=== PATIENT | male | born 1985 | race Caucasian/White ===

== ENCOUNTER 2018-09-10 11:33 | Emergency (ER) | payer BC, OTHER ==
[2018-09-10 12:01] VITALS: BP 156/90
[2018-09-10] MEDS ORDERED: Tetracaine 0.5% OPTH.SOL 4 ML* 1 DROP BTL LEFT EYE ONE (12:02)
[2018-09-10] MEDS ORDERED: Fluorescein Sodium TOPICAL* 1 MG TEST STRIP OPHTHALMIC ONE (12:02)
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
== END 2018-09-10 12:21 | disposition home or self-care (01) ==
LOC: UCCORT 11:33
DX: S05.02XA Injury of conjunctiva and corneal abrasion without foreign body, left eye, initial encounter (principal); Y08.89XA Assault by other specified means, initial encounter; Y92.89 Other specified places as the place of occurrence of the external cause; Y99.0 Civilian activity done for income or pay; Z87.891 Personal history of nicotine dependence
CPT/HCPCS: 99202; A9270-GY; G0463

== ENCOUNTER 2018-09-11 10:22 | Emergency (ER) | payer OTHER ==
[2018-09-11 10:50] VITALS: BP 161/89
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
== END 2018-09-11 11:06 | disposition home or self-care (01) ==
LOC: UCCORT 10:22
DX: H20.9 Unspecified iridocyclitis (principal); Z87.891 Personal history of nicotine dependence
CPT/HCPCS: 99212; G0463

== ENCOUNTER 2018-09-24 08:15 | Emergency (ER) | payer BC ==
[2018-09-24 08:30] VITALS: BP 159/94
--- NOTE | 2018-09-24 08:40 | UC ---
Skin Complaint HPI - HPI Summary HPI Summary: 33-year-old male presents with rash to bilateral hands and forearms. States started approximately one week ago after using a new dish soap at home. He was seen in the [facility] ED on 09/25/2018 for a work-related injury and was noted to have the rash at that time. He was given a single dose with IV steroid at that time and states that the rash did improve. Because of the improvement he attempted to wash dishes again a couple days ago and now has developed the rash again. He did notice some "sticky" drainage this morning. Denies fever, chills , pain, pruritis, swelling of the lips tongue or throat, or difficulty breathing. - History of Current Complaint Chief Complaint: UCSkin Time Seen by Provider: 09/24/18 08:17 Stated Complaint: SKIN CONCERN Hx Obtained From: Patient Pain Intensity: 0 - Allergy/Home Medications Allergies/Adverse Reactions: Allergies Allergy/AdvReac Type Severity Reaction Status Date / Time No Known Allergies Allergy Verified 09/24/18 08:28 PMH/Surg Hx/FS Hx/Imm Hx Previously Healthy: Yes - Denies significant PMH - Surgical History Surgical History: Yes Surgery Procedure, Year, and Place: LASIK, ~2008; Cranial Disorder Surgeries prior to 1987 - Family History Known Family History: Positive: Non-Contributory - Social History Occupation: Employed Full-time Lives: With Family Alcohol Use: Occasionally Substance Use Type: None Smoking Status (MU): Former Smoker Length of Time of Smoking/Using Tobacco: <1/4 PPD x 3 Years When Did the Patient Quit Smoking/Using Tobacco: 2002 - Immunization History Most Recent Tetanus Shot: ~2007 Review of Systems All Other Systems Reviewed And Are Negative: Yes Constitutional: Negative: Fever, Chills Skin: Positive: Rash - See HPI Respiratory: Negative: Shortness Of Breath Is Patient Immunocompromised?: No Physical Exam - Summary Physical Exam Summary: GENERAL APPEARANCE: Well developed, well nourished, alert and cooperative, and appears to be in no acute distress. THROAT: Oral cavity and pharynx normal. No inflammation, swelling, exudate, or lesions. Teeth and gingiva in good general condition. Airway patent. NECK: Neck supple, non-tender without lymphadenopathy. CARDIAC: Normal S1 and S2. No S3, S4 or murmurs. Rhythm is regular. There is no peripheral edema, cyanosis or pallor. Extremities are warm and well perfused. Capillary refill is less than 2 seconds. LUNGS: Clear to auscultation and percussion without rales, rhonchi, wheezing or diminished breath sounds. MUSKULOSKELETAL: ROM intact to all extremities. No joint erythema or tenderness. Normal muscular development. Normal gait. EXTREMITIES: No edema. Peripheral pulses intact. NEUROLOGICAL: Strength and sensation symmetric and intact throughout. SKIN: Erythematous, maculopapular circumferential rash with fissures to bilateral hands and forearms extending up to the elbows. No drainage noted. Triage Information Reviewed: Yes Vital Signs: Initial Vital Signs Temp 98.1 F 09/24/18 08:25 Pulse 76 09/24/18 08:25 Resp 18 09/24/18 08:25 BP 159/94 09/24/18 08:25 Pulse Ox 99 09/24/18 08:25 Vital Signs Reviewed: Yes Course/Dx - Course Course Of Treatment: 33-year-old male presents with rash to bilateral hands and forearms. States started approximately one week ago after using a new dish soap at home. He was seen in the [facility] ED on 09/25/2018 for a work-related injury and was noted to have the rash at that time. He was given a single dose with IV steroid at that time and states that the rash did improve. Because of the improvement he attempted to wash dishes again a couple days ago and now has developed the rash again. He did notice some "sticky" drainage this morning. Denies fever, chills, pain, pruritis, swelling of the lips tongue or throat, or difficulty breathing. Afebrile. VSS. Exam revealed rash to bilateral hands and forearms consistent with a contact dermatitis especially with the correlation of onset of rash with contact with a new dish detergent and the improvement with previously received steroid. Will treat with course of oral prednisone x 5 days and provide him with a topical steroid to use once oral treatment is completed. He was given number for [facility] physician referral service to asssit him with establishing a PCP for follow up. Warning symptoms reviewed. Verbalizes understanding and agrees with POC. - Differential Diagnoses - Skin Complaint Differential Diagnoses: Allergic Reaction, Contact Dermatitis, Eczema, Local Allergic Reaction - Diagnoses Provider Diagnosis: Contact dermatitis, Elevated blood pressure reading Discharge - Sign-Out/Discharge Documenting (check all that apply): Patient Departure All imaging exams completed and their final reports reviewed: No Studies - Discharge Plan Condition: Stable Disposition: HOME Prescriptions: Clobetasol Propionate/Emoll [Clobetasol Emollient 0.05% Crm] 30 gm TP BID #1 tube predniSONE TAB* [Deltasone TAB*] 50 mg PO DAILY 5 Days #5 tab Patient Education Materials: Contact Dermatitis (ED) Referrals: No Primary Care Phys,NOPCP [Primary Care Provider] - [facility] PHYSICIAN REFERRAL [Outside] Additional Instructions: Your symptoms are consistent with a contact dermatitis likely from the dish soap you were using. We will treat you with a course of oral steroids and provide you with a topical steroid you can use once you have finished taking the oral steroids. Start prednisone 50 mg 1 tab daily for 5 days. Once you have completed the prednisone start applying clobetasol cream to the affected area(s) twice a day. Do not use for more than 2 weeks. I have given you the number for the [facility]'s Physician Referral Service to assist you with establishing with a primary care provider for follow up of symptoms. Your blood pressure was also noted to be elevated in the clinic today. This should be rechecked by a primary care provider within 4 weeks. Seek immediate medical attention in the emergency room if you develop fever greater than 100.5 F, have swelling of the lips, tongue, or throat, difficulty breathing or any worsening of symptoms. - Billing Disposition and Condition Condition: STABLE Disposition: Home
== END 2018-09-24 08:54 | disposition home or self-care (01) ==
LOC: UCCORT 08:15
DX: L25.9 Unspecified contact dermatitis, unspecified cause (principal); R03.0 Elevated blood-pressure reading, without diagnosis of hypertension; Z87.891 Personal history of nicotine dependence
CPT/HCPCS: 99212; G0463

== ENCOUNTER 2018-10-03 09:37 | Emergency (ER) | payer BC ==
[2018-10-03 10:35] VITALS: BP 139/91
[2018-10-03] MEDS ORDERED: predniSONE TAB* 20 MG PO ONE (11:15)
[2018-10-03] MEDS ORDERED: Triamcinolone Acetonide* 40 MG/ML 1 ML VIAL IM ONE (11:15)
--- NOTE | 2018-10-03 11:22 | UC ---
Skin Complaint HPI - HPI Summary HPI Summary: The patient is a 33-year-old with bilateral hand and forearm rash times weeks. He had marked relief while he was on oral prednisone. He states that he tends to wash his hands too frequently. Symptoms worsen when he wash the dishes. - History of Current Complaint Chief Complaint: UCSkin Time Seen by Provider: 10/03/18 11:08 Stated Complaint: RECHECK - INFECTION IN HANDS Hx Obtained From: Patient Onset/Duration: Gradual Onset, Lasting Weeks Timing: Constant Onset Severity: Mild Current Severity: Moderate Pain Intensity: 0 Pain Scale Used: 0-10 Numeric Location: Discrete Character: Swelling, Pruritus, Redness Aggravating Factor(s): Wet Conditions Alleviating Factor(s): Other - steroids Associated Signs & Symptoms: Positive: Rash - Allergy/Home Medications Allergies/Adverse Reactions: Allergies Allergy/AdvReac Type Severity Reaction Status Date / Time No Known Allergies Allergy Verified 09/24/18 08:28 PMH/Surg Hx/FS Hx/Imm Hx Previously Healthy: Yes - Surgical History Surgical History: Yes Surgery Procedure, Year, and Place: LASIK, ~2008; Cranial Disorder Surgeries prior to 1987 - Family History Known Family History: Positive: Hypertension, Non-Contributory Negative: Diabetes - Social History Alcohol Use: Occasionally Substance Use Type: None Smoking Status (MU): Former Smoker Length of Time of Smoking/Using Tobacco: <1/4 PPD x 3 Years When Did the Patient Quit Smoking/Using Tobacco: 2002 - Immunization History Most Recent Tetanus Shot: ~2007 Review of Systems All Other Systems Reviewed And Are Negative: Yes Skin: Positive: Rash Physical Exam Triage Information Reviewed: Yes Appearance: Well-Appearing, No Pain Distress, Well-Nourished Vital Signs: Initial Vital Signs Temp 98.4 F 10/03/18 10:30 Pulse 77 10/03/18 10:30 Resp 18 10/03/18 10:30 BP 139/91 10/03/18 10:30 Pulse Ox 99 10/03/18 10:30 Vital Signs Reviewed: Yes Eyes: Positive: Conjunctiva Clear ENT: Positive: Hearing grossly normal, Other - dysmorhic facies. Negative: Nasal congestion, Nasal drainage, Tonsillar swelling, Tonsillar exudate, Muffled voice Neck: Positive: Supple, Nontender, No Lymphadenopathy Respiratory: Positive: Lungs clear, Normal breath sounds, No respiratory distress Cardiovascular: Positive: RRR, No Murmur Musculoskeletal: Positive: ROM Intact, No Edema Neurological: Positive: Alert Psychological Exam: Normal Skin: Positive: Other - bilateral hand redness/fissures/edema/dry scale Course/Dx - Diagnoses Provider Diagnosis: Hand dermatitis Discharge - Sign-Out/Discharge Documenting (check all that apply): Patient Departure All imaging exams completed and their final reports reviewed: No Studies - Discharge Plan Condition: Stable Disposition: HOME Patient Education Materials: Dermatitis (ED) Referrals: No Primary Care Phys,NOPCP [Primary Care Provider] - Additional Instructions: use your steroid cream once daily put on hands at bedtime apply medication gloves or thin cotton gloves do this for about 2-3 weeks during the day use aquaphor healing ointment (OTC) recheck in 2-3 weeks if not markedly improved - Billing Disposition and Condition Condition: STABLE Disposition: Home
== END 2018-10-03 11:52 | disposition home or self-care (01) ==
LOC: UCCORT 09:37
DX: Z51.89 Encounter for other specified aftercare (principal); L30.9 Dermatitis, unspecified; Z87.891 Personal history of nicotine dependence
CPT/HCPCS: 96372; 99211; G0463; J3301; J7512

== ENCOUNTER 2018-10-12 15:35 | Emergency (ER) | payer BC ==
[2018-10-12 16:47] VITALS: BP 149/88
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
== END 2018-10-12 18:46 | disposition home or self-care (01) ==
LOC: UCCORT 15:35
DX: S06.0X9D Concussion with loss of consciousness of unspecified duration, subsequent encounter (principal); W22.8XXD Striking against or struck by other objects, subsequent encounter; Z51.89 Encounter for other specified aftercare; Z87.891 Personal history of nicotine dependence
CPT/HCPCS: 99211; G0463

== ENCOUNTER 2018-12-07 08:52 | Emergency (ER) | payer BC, OTHER ==
[2018-12-07 09:11] VITALS: BP 157/92
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
== END 2018-12-07 10:51 | disposition home or self-care (01) ==
LOC: UCCORT 08:52
DX: S16.1XXA Strain of muscle, fascia and tendon at neck level, initial encounter (principal); Z87.891 Personal history of nicotine dependence; V43.52XA Car driver injured in collision with other type car in traffic accident, initial encounter; Y92.9 Unspecified place or not applicable
CPT/HCPCS: 72020; 72050; 99213; G0463

== ENCOUNTER 2019-05-06 12:19 | Emergency (ER) | payer OTHER ==
--- NOTE | 2019-05-06 12:44 | UC ---
General HPI - HPI Summary HPI Summary: while at work this am, pt ran after a child when his R knee buckled. he has pain to the inside of his knee and the lower leg. - History of Current Complaint Chief Complaint: UCLowerExtremity Stated Complaint: WC-RT KNEE INJURY Time Seen by Provider: 05/06/19 12:32 Hx Obtained From: Patient Onset/Duration: Sudden Onset Timing: Constant Pain Intensity: 7 Aggravating: movement Associated Signs & Symptoms: Positive: Edema - R calf - Allergy/Home Medications Allergies/Adverse Reactions: Allergies Allergy/AdvReac Type Severity Reaction Status Date / Time No Known Allergies Allergy Verified 05/06/19 12:33 PMH/Surg Hx/FS Hx/Imm Hx Previously Healthy: Yes - Surgical History Surgical History: Yes Surgery Procedure, Year, and Place: LASIK, ~2008; Cranial Disorder Surgeries prior to 1987 - Family History Known Family History: Positive: None, Hypertension, Non-Contributory Negative: Diabetes - Social History Occupation: Employed Full-time Alcohol Use: Occasionally Substance Use Type: None Smoking Status (MU): Former Smoker Length of Time of Smoking/Using Tobacco: <1/4 PPD x 3 Years When Did the Patient Quit Smoking/Using Tobacco: 2002 - Immunization History Most Recent Tetanus Shot: ~2007 Review of Systems All Other Systems Reviewed And Are Negative: No Skin: Negative: Rash Musculoskeletal: Positive: Calf Tenderness - R. Negative: Decreased ROM Neurological: Negative: Weakness, Paresthesia, Numbness Physical Exam Triage Information Reviewed: Yes Appearance: Pain Distress Vital Signs: Initial Vital Signs Temp 98.3 F 05/06/19 12:33 Pulse 89 05/06/19 12:33 Resp 16 05/06/19 12:33 BP 154/104 05/06/19 12:33 Pulse Ox 98 05/06/19 12:33 Vital Signs Reviewed: Yes Musculoskeletal: Positive: Other: - RLE: hip =without deformity or tenderness, rom intact. Knee without deformity, tender over medial joint line but no laxity and rom intact. Calf swollen and tender. achilles non tender and intact. ankle and foot non tender and full s/v/m is intact. Neurological: Positive: Alert Psychological: Positive: Age Appropriate Behavior Skin Exam: Normal Skin: Negative: Rashes Diagnostics - Radiology No standard instances Radiology Interpretation Completed By: Radiologist - IMPRESSION: NO ACUTE OSSEOUS INJURY. IF SYMPTOMS PERSIST, RECOMMEND REPEAT IMAGING. Course/Dx - Diagnoses Provider Diagnosis: Gastrocnemius muscle strain, Right knee sprain Discharge - Sign-Out/Discharge Documenting (check all that apply): Patient Departure All imaging exams completed and their final reports reviewed: Yes - Discharge Plan Condition: Stable Disposition: HOME Patient Education Materials: Muscle Strain (DC) Referrals: Michael Carpenter MD [Medical Doctor] - As Soon As Possible Additional Instructions: must use amanda and crutches until cleared - Billing Disposition and Condition Condition: STABLE Disposition: Home
[2019-05-06] MEDS ORDERED: Acetaminophen TAB* 325 MG PO ONE (12:45)
[2019-05-06] MEDS ORDERED: Ibuprofen ADULT LIQ* 600 MG/30 ML UDC PO ONE (12:45)
[2019-05-06 13:06] VITALS: BP 145/113
== END 2019-05-06 13:55 | disposition home or self-care (01) ==
LOC: UCCORT 12:19
DX: S83.91XA Sprain of unspecified site of right knee, initial encounter (principal); S86.811A Strain of other muscle(s) and tendon(s) at lower leg level, right leg, initial encounter; X58.XXXA Exposure to other specified factors, initial encounter; Y93.02 Activity, running; Y92.9 Unspecified place or not applicable; Z87.891 Personal history of nicotine dependence
CPT/HCPCS: 99213; A9270-GY; G0463

== ENCOUNTER 2019-08-25 13:18 | Emergency (ER) | payer SELFPAY ==
[2019-08-25 14:23] VITALS: BP 152/100
--- NOTE | 2019-08-25 15:16 | UC ---
Complaint Male HPI - HPI Summary HPI Summary: 34-year-old male presents with complaints of hematuria. Patient states that 3 days ago he urinated in the morning and noticed a string like blood clot in his urine. He had no further episodes of bleeding or blood clots for the next 2 days and then this morning when he woke up he noted 2 small drops of blood in his boxers. States after he noticed the blood he became aware that he had some lower abdominal achiness that he describes as if he had been doing situps however is pain-free at this time. Patient is in a monogamous relationship with his spouse and denies any concerns for sexually transmitted infections. Denies fever, chills, back or flank pain, nausea, vomiting, dysuria, frequency, urgency, testicular pain or swelling, penile lesions, or penile discharge. - History of Current Complaint Chief Complaint: UCGU Stated Complaint: URINARY COMPLAINT Time Seen by Provider: 08/25/19 14:53 Hx Obtained From: Patient Pain Intensity: 3 - Allergies/Home Medications Allergies/Adverse Reactions: Allergies Allergy/AdvReac Type Severity Reaction Status Date / Time No Known Allergies Allergy Verified 08/25/19 14:12 Home Medications: Home Medications NK [No Home Medications Reported] 08/25/19 [History Confirmed 08/25/19] PMH/Surg Hx/FS Hx/Imm Hx Previously Healthy: Yes Psychological History: Other - OCD - Surgical History Surgical History: Yes Surgery Procedure, Year, and Place: , ~2008; Cranial Disorder Surgeries prior to 1987 - Family History Known Family History: Positive: Hypertension - Social History Occupation: Employed Full-time Lives: With Family Alcohol Use: Occasionally Substance Use Type: None Smoking Status (MU): Former Smoker Length of Time of Smoking/Using Tobacco: <1/4 PPD x 3 Years When Did the Patient Quit Smoking/Using Tobacco: 2002 - Immunization History Most Recent Tetanus Shot: ~2007 Review of Systems All Other Systems Reviewed And Are Negative: Yes Constitutional: Negative: Fever, Chills Respiratory: Positive: Negative Cardiovascular: Positive: Negative Gastrointestinal: Negative: Abdominal Pain, Vomiting, Nausea Genitourinary: Positive: Hematuria. Negative: Dysuria, Frequency, Urgency, Vaginal/Penile Discharge, Ulceration/Lesion Musculoskeletal: Positive: Negative Neurological: Positive: Negative Is Patient Immunocompromised?: No Physical Exam - Summary Physical Exam Summary: GENERAL APPEARANCE: Well developed, well nourished, alert and cooperative, and appears to be in no acute distress. CARDIAC: Normal S1 and S2. No S3, S4 or murmurs. Rhythm is regular. There is no peripheral edema, cyanosis or pallor. Extremities are warm and well perfused. Capillary refill is less than 2 seconds. Peripheral pulses intact. LUNGS: Clear to auscultation without rales, rhonchi, wheezing or diminished breath sounds. ABDOMEN: Positive bowel sounds. Soft, nondistended, nontender. No guarding or rebound. No masses or hepatosplenomegally. No CVA tenderness. GENITOURINARY: Penis normal without lesions, ulcerations, or discharge. No scrotal swelling. Testicles smooth and non-tender without masses. MUSKULOSKELETAL: ROM intact to all extremities. No joint erythema or tenderness. Normal muscular development. Normal gait. SKIN: Skin normal color, texture and turgor with no lesions or eruptions. Triage Information Reviewed: Yes Vital Signs: Initial Vital Signs Temp 98 F 08/25/19 14:12 Pulse 62 08/25/19 14:12 Resp 18 08/25/19 14:12 BP 152/100 08/25/19 14:12 Pulse Ox 100 08/25/19 14:12 Vital Signs Reviewed: Yes Eye Exam: Normal ENT Exam: Normal Dental Exam: Normal Neck exam: Normal Neck: Positive: 1 Respiratory Exam: Normal Cardiovascular Exam: Normal Abdominal Exam: Normal Musculoskeletal Exam: Normal Neurological Exam: Normal Psychological Exam: Normal Skin Exam: Normal Complaint Male Course/Dx - Course Course Of Treatment: 34-year-old male presents with complaints of hematuria. Patient states that 3 days ago he urinated in the morning and noticed a string like blood clot in his urine. He had no further episodes of bleeding or blood clots for the next 2 days and then this morning when he woke up he noted 2 small drops of blood in his boxers. States after he noticed the blood he became aware that he had some lower abdominal achiness that he describes as if he had been doing situps however is pain-free at this time. Patient is in a monogamous relationship with his spouse and denies any concerns for sexually transmitted infections. Denies fever, chills, back or flank pain, nausea, vomiting, dysuria, frequency, urgency, testicular pain or swelling, penile lesions, or penile discharge. Afebrile. Hypertensive otherwise vital signs stable. Patient's exam was overall unremarkable. [id number] urinalysis was within normal limits. Reviewed results with the patient. We discussed that I could not determine the exact cause of his episode of hematuria although based on his lack of other symptoms and normal urinalysis have a low suspicion for any type of infectious cause. We did discuss the possibility of STIs however patient has a very low risk factor and is declining screaming at this time. Recommending watchful waiting at this time. He is to follow-up with urology in 7 days if symptoms persist. Anticipatory guidance and warning symptoms are reviewed with the patient. Verbalizes understanding and agrees with plan of care. - Differential Dx/Diagnosis Differential Diagnosis/HQI/PQRI: Epididymitis, Cancer, Prostatitis, Ureteral Calculi, Urinary Tract Infection, Other - STI Provider Diagnosis: Hematuria Discharge ED - Sign-Out/Discharge Documenting (check all that apply): Patient Departure All imaging exams completed and their final reports reviewed: No Studies - Discharge Plan Condition: Stable Disposition: HOME Patient Education Materials: Hematuria (ED) Referrals: Dione Keller NP [Primary Care Provider] - [facility] [place] [facility] [Outside] Rubén Crockett MD [Medical Doctor] - 7 Days (If symptoms persist. Call for appointment.) Additional Instructions: The urine test performed in the clinic today was normal. There was no evidence of blood or infection. Since you are not having any other symptoms I am recommending watchful waiting at this time. Follow-up with urology within 7 days if symptoms persist. Call for appointment. Seek immediate medical attention in the emergency room if you develop a fever greater than 100.5 F, have severe abdominal pain, severe back pain, persistent or projectile vomiting, large amount of blood in the urine, testicular pain or swelling, or any worsening of symptoms. - Billing Disposition and Condition Condition: STABLE Disposition: Home
== END 2019-08-25 15:44 | disposition home or self-care (01) ==
LOC: UCCORT 13:18
DX: R31.9 Hematuria, unspecified (principal); Z87.891 Personal history of nicotine dependence
CPT/HCPCS: 81003; 99211; G0463